=== PATIENT | female | born 1950 | race Caucasian/White ===

== ENCOUNTER → 2016-07-02 | Outpatient (CLI) | payer OTHER, MEDICARE | LOC: RAD 04:30 | DX: Z12.31 Encounter for screening mammogram for malignant neoplasm of breast (principal) ==

== ENCOUNTER 2018-03-10 18:35 | Inpatient (IN) | payer OTHER, MEDICARE ==
[~2018-03-10] VITALS: Ht 152.4 cm; Wt 91.6 kg
[2018-03-10 18:48] VITALS: BP 203/75
[2018-03-10] MEDS ORDERED: XANAX 0.5 MG0.5 MG PO (19:03)
[2018-03-10] MEDS ORDERED: OMEPRAZOLE40 MG PO (19:04)
[2018-03-10] MEDS ORDERED: NORVASC5 MG PO (19:04)
[2018-03-10] MEDS ORDERED: TOPROL XL100 MG PO (19:04)
[2018-03-10] MEDS ORDERED: HYDROCHLOROTHIA25 M2 PO (19:04)
[2018-03-10] MEDS ORDERED: GLUCOTROL5 MG PO (19:04)
[2018-03-10] MEDS ORDERED: MOBIC15 MG PO (19:04)
[2018-03-10] MEDS ORDERED: LISINOPRIL40 MG PO (19:04)
[2018-03-10] MEDS ORDERED: CENTRUM SILVER1 EAC4 PO (19:05)
[2018-03-10] MEDS ORDERED: BIOTIN5000 MCG PO (19:05)
[2018-03-10] MEDS ORDERED: COQ-10100 MG PO (19:05)
[2018-03-10] MEDS ORDERED: ZOCOR40 MG PO (19:05)
[2018-03-10] MEDS ORDERED: CALCIUM 600 +1 EAC1 PO (19:05)
[2018-03-10] MEDS ORDERED: CITRUCEL500 MG PO (19:06)
[2018-03-10] MEDS ORDERED: VITAMINC500 PO (19:06)
[2018-03-10] MEDS ORDERED: SUPER B COMPLE1 EAC2 PO (19:06)
[2018-03-10 19:25] LABS: ABSOLUTE NEUTROPHILS 9.2 thou/uL (1.4-8.2); BASOPHILS 0.9 % (0.0-2.0); EOSINOPHILS 2.7 % (0.0-3.0); HEMATOCRIT 38.1 % (37.0-47.0); HEMOGLOBIN 13.1 gm/dL (12.0-15.0); LYMPHOCYTES 15.9 % (24.0-44.0); MCHC 34.4 g/dL (28.0-37.0); MCV 84.1 fL (80.0-100.0); PLATELET COUNT 234 thou/uL (150-400); POLYS 73.5 % (36.0-66.0); RBC 4.53 mil/uL (4.20-5.00); RDW 13.2 % (10.5-14.5); WBC 12.6 thou/uL (4.0-11.0)
[2018-03-10 19:35] LABS: CALCIUM 9.4 mg/dL (8.5-10.1); CREATININE 1.4 mg/dL (0.6-1.0); POTASSIUM 3.9 mmol/L (3.5-5.1)
[2018-03-10 19:39] LABS: PROTIME 10.1 Seconds (9.3-11.4)
[2018-03-10 19:41] LABS: ALBUMIN 3.8 g/dL (3.4-5.0); DIRECT BILIRUBIN 0.1 mg/dL (<0.1-0.3); TOTAL BILIRUBIN 0.5 mg/dL (<0.1-1.0); TOTAL PROTEIN 7.2 g/dL (6.4-8.2)
[2018-03-10 20:50] VITALS: BP 137/46
[2018-03-10 21:18] VITALS: BP 137/46
[2018-03-10 21:25] VITALS: BP 149/53
[2018-03-11 03:41] LABS: HEMATOCRIT 33.6 % (37.0-47.0); HEMOGLOBIN 11.5 gm/dL (12.0-15.0); MCH 29.4 pg (26.0-34.0); MCHC 34.3 g/dL (28.0-37.0); MCV 85.7 fL (80.0-100.0); RBC 3.93 mil/uL (4.20-5.00); WBC 9.1 thou/uL (4.0-11.0)
[2018-03-11 04:00] LABS: ALBUMIN 3.1 g/dL (3.4-5.0); CALCIUM 8.8 mg/dL (8.5-10.1); CREATININE 1.1 mg/dL (0.6-1.0); POTASSIUM 4.2 mmol/L (3.5-5.1); TOTAL BILIRUBIN 0.4 mg/dL (<0.1-1.0); TOTAL PROTEIN 6.1 g/dL (6.4-8.2)
[2018-03-11 04:22] VITALS: BP 118/44
[2018-03-11 07:32] VITALS: BP 118/57
--- NOTE | 2018-03-11 07:52 | NUR ---
PROGRESS PT ADMITTED WITH DIVERTICULITIS, IVF'S INFUSING ORDERED, VOIDING QS, HAD A SMALL BMBUT MIXED WITH URINE UNABLE TO OBTAIN SPECIMEN. DENIES PAIN IV ANTIBIOTICS GIVEN ORDERED TOLERATING CLEARS AT THIS TIME.
--- NOTE | 2018-03-11 15:11 | NUR ---
ASSUMED PT CARE AT 0645. PT WAS RESTING AT THIS TIME, BUT A/OX4. WILL CONTINUE TO MONITOR PT.
[2018-03-11 15:14] VITALS: BP 123/62
[2018-03-11 19:27] VITALS: BP 129/49
[2018-03-12 04:18] VITALS: BP 131/55
--- NOTE | 2018-03-12 05:00 | NUR ---
Pt. rested quietly at intervals during the night when checked on during frequent rounds. She c/o a headache and was given po tylenol (see emar) with some relief of pain noted. Pt. c/o abdominal pain and rates a 2 out of 10 and denied any pain intervention.
[2018-03-12 08:04] VITALS: BP 128/47
[2018-03-12 09:20] LABS: HEMATOCRIT 33.8 % (37.0-47.0); HEMOGLOBIN 11.2 gm/dL (12.0-15.0); MCH 28.5 pg (26.0-34.0); MCHC 33.1 g/dL (28.0-37.0); MCV 86.2 fL (80.0-100.0); RBC 3.92 mil/uL (4.20-5.00); WBC 5.4 thou/uL (4.0-11.0)
[2018-03-12 09:28] LABS: CALCIUM 8.6 mg/dL (8.5-10.1); CREATININE 1.1 mg/dL (0.6-1.0); MAGNESIUM 1.7 mg/dL (1.8-2.4); POTASSIUM 4.4 mmol/L (3.5-5.1)
--- NOTE | 2018-03-12 15:56 | NUR ---
PT ADMITTED RELATED TO DIVERTICULITIS. CM REVIEWED CHART AND SPOKE WITH CARE TEAM. CM MET WITH PT AT BEDSIDE THIS DAY. PT IS A&O X4. CM ROLE INTRODUCED. PT INDICATED SHE LIVES IN A HOUSE WITH HER SPOUSE WITH 4 STEPS TO ENTER AND 14 STEPS TO SECOND STORY INDICATED. 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 PT INDICATED NO DME OR HH HX. PT INDICATED SHE PLANS TO RETURN HOME ONCE MEDICALLY STABLE. CM TO FOLLOW INDICATED WITH DC PLANNING.
[2018-03-12 17:40] VITALS: BP 129/59
--- NOTE | 2018-03-12 18:13 | NUR ---
ASSUMED CARE OF PT AT 0700. ASSESSMENT COMPLETED. A&0,X4. C/O HEADACHE, MEDS GIVEN ORDERED. DENIES ABD PAIN AND NAUSEA AT TIME OF ASSESSMENT. NEW ORDER FOR MIRALAX GIVEN, PT REPORTED 6-8 LOOSE BOWEL MOVEMENTS AFTER DOSE GIVEN. STOOL SPECIMEN COLLECTED AND SENT TO LAB DURING SHIFT. PT IS DIABETIC AND ACHS, REFUSED BREAKFAST AND LUNCH INSULIN PER SLIDING SCALE. AT BEDSIDE. MAINTAINING C.DIFF PRECAUTIONS. VSS.
[2018-03-12 21:03] VITALS: BP 159/60
--- NOTE | 2018-03-13 04:16 | NUR ---
PT RESTED THROUGHOUT THE NIGHT WITH NO ISSUES OR COMPLAINTS OF PAIN PT USED CALL LIGHT EFFECTIVELY.
[2018-03-13 05:22] VITALS: BP 151/49
[2018-03-13 05:49] LABS: HEMATOCRIT 34.2 % (37.0-47.0); HEMOGLOBIN 11.4 gm/dL (12.0-15.0); MCH 28.1 pg (26.0-34.0); MCHC 33.2 g/dL (28.0-37.0); MCV 84.8 fL (80.0-100.0); RBC 4.03 mil/uL (4.20-5.00); RDW 13.2 % (10.5-14.5); WBC 5.6 thou/uL (4.0-11.0)
[2018-03-13 06:08] LABS: CALCIUM 8.9 mg/dL (8.5-10.1); MAGNESIUM 1.7 mg/dL (1.8-2.4)
[2018-03-13 07:41] VITALS: BP 164/74
[2018-03-13] MEDS ORDERED: CIPRO500 MG PO (12:34)
[2018-03-13] MEDS ORDERED: FLAGYL500 M1 PO (12:35)
[2018-03-13 12:52] VITALS: BP 164/74
== END 2018-03-13 13:38 | disposition home or self-care (01) | DRG 377 ==
LOC: ER 18:35 → 4W 20:22 → EROBS 20:22 → 4W 21:15 → ENTRNSPT 03-13 13:37 → 4W 03-13 13:38
PROVIDERS: Internal Medicine; Nurse Practitioner; ADMIT Hospitalist
DX: K57.33 Diverticulitis of large intestine without perforation or abscess with bleeding (principal); N17.0 Acute kidney failure with tubular necrosis; K52.9 Noninfective gastroenteritis and colitis, unspecified; E11.9 Type 2 diabetes mellitus without complications; F41.1 Generalized anxiety disorder; I10 Essential (primary) hypertension; E78.5 Hyperlipidemia, unspecified; M54.5 Low back pain; G89.29 Other chronic pain; E78.00 Pure hypercholesterolemia, unspecified; K57.90 Diverticulosis of intestine, part unspecified, without perforation or abscess without bleeding; Z88.1 Allergy status to other antibiotic agents; Z79.899 Other long term (current) drug therapy
CPT/HCPCS: 10040

== ENCOUNTER → 2018-04-24 | Outpatient (CLI) | payer OTHER, MEDICARE ==
[~2018-04-24] VITALS: Ht 160 cm; Wt 88.5 kg
[~2018-04-24] MED LIST: BIOTIN5000 MCG PO; CALCIUM 600 +1 EAC1 PO; CENTRUM SILVER1 EAC4 PO; CIPRO500 MG PO; CITRUCEL500 MG PO; COQ-10100 MG PO; FLAGYL500 M1 PO; GLUCOTROL5 MG PO; HAIR, SKIN AND1 EACH PO; HYDROCHLOROTHIA25 M2 PO; LEVALBUTER0.63 MG/3 INH; LISINOPRIL40 MG PO; MOBIC15 MG PO; NORVASC5 MG PO; OMEPRAZOLE40 MG PO; SUPER B COMPLE1 EAC2 PO; TOPROL XL100 MG PO; VITAMINC500 PO; XANAX 0.5 MG0.5 MG PO; ZOCOR40 MG PO
--- NOTE | ~2018-04-24 | P ---
[facility] [place] [address] PROCEDURE REPORT Name: BETSY MARKHAM Room #: REG [facility]#: [id number] Admission: 04/24/18 ������������������ Attend Phys: Robert Conroy MD Discharge: ������������������ Date of : 48 Report #: [id number] THIS REPORT FOR: //name// CC: Robert Figueroa MD DATE OF SERVICE: 04/24/2018 BRIEF HISTORY: The patient is a 68-year-old woman who was admitted to [facility] in February of this year with acute onset of rectal bleeding, diarrhea and abdominal pain. CT revealed diverticular disease and also abnormalities consistent with either colitis or diverticulitis. She completed antibiotics and has had resolution of her symptoms and presents for further evaluation. PREOPERATIVE DIAGNOSES: Rectal bleeding, change in bowel habits and abdominal pain. POSTOPERATIVE DIAGNOSES: Moderately severe sigmoid diverticulosis coli with few scattered proximal colonic diverticula. MEDICATIONS: Deep sedation with propofol per Anesthesia. SPECIMEN: None. ESTIMATED BLOOD LOSS: None. PROCEDURE: Colonoscopy to cecum and terminal ileum. FINDINGS: Prior to propofol sedation, procedure of colonoscopy discussed with the patient as well as potential risks and its complications. She indicates she understands and desires to proceed. DESCRIPTION OF PROCEDURE: With the patient in lateral decubitus position, digital examination was completed, which revealed no abnormalities. Subsequently, the Olympus video colonoscope was introduced into the rectum, advanced under direct vision to the cecum. Done with some difficulty as she had very difficult sigmoid colon to traverse. The sigmoid colon was fixed and rigid and was with sharp angles. We made several attempts to pass the standard colonoscope without success. The scope was exchanged for a pediatric colonoscope. Then we were able to pass the scope with modest difficulty through the sigmoid colon. Once we were above the sigmoid colon, the scope passed easily into the proximal colon and the cecum was reached, identified by the ileocecal valve and the appendiceal orifice. We were able to visualize the distal segment of the terminal ileum, which was inspected and noted to be [facility] [address] [place] [address] PROCEDURE REPORT Name: BETSY MARKHAM Room #: REG [facility].#: [id number] Admission: 04/24/18 ������������������ Attend Phys: Robert Conroy MD Discharge: ������������������ Date of : 48 Report #: [id number] unremarkable as well. At that point, the scope was slowly withdrawn and careful circumferential views were obtained. The prep was good. The mucosa was within normal limits, normal vascular pattern, normal light reflex. As we withdrew the scope, no neoplastic or inflammatory changes were seen. There were a few small diverticula in the proximal colon. However, she was noted to have fairly severe left-sided diverticular disease, essentially involving the sigmoid colon. This area was tortuous and fairly rigid, but there are no definite obstructions. No bleeding lesions were seen. There is no evidence of colitis. There was no endoscopic evidence of diverticulitis. The scope was withdrawn into the rectum. No abnormalities were seen. Upon retroflexion, no abnormalities were seen. Scope was withdrawn. The patient tolerated the procedure well. CONDITION OF THE PATIENT UPON DISCHARGE: Following the procedure, the patient was drowsy, arousable and conversant. She will be discharged home when fully ambulatory. INSTRUCTIONS TO THE PATIENT AND FAMILY AT THE TIME OF DISCHARGE: She clearly has a fairly extensive diverticular disease. She reports her pain is controlled as long as she takes fiber and stool softeners. She has not had any further rectal bleeding. I suspect she had an acute self-limited process, I cannot say with certainty, but I suspect there was an acute colitis. Another consideration would be an acute ischemic event. Diverticulitis is also possibilities. At this point in time, I suggest she continue fiber product and stool softener. If needed, she may use MiraLax for management of constipation as well. If she has recurrent bouts of pain, especially recurrent bouts of documented diverticulitis, surgical resection of sigmoid colon may be an option for her. She will return to care of Dr. Luisito Figueroa and return to see me as needed. Continue high fiber diet and stool softeners. Suggest colonoscopy in 10 years for average risk patient. Her last colonoscopy was in 2011. Withdrawal time from the cecum was 9 minutes 56 seconds. ��������������������������������������������� ���������������������������������������� By: ��������������������������������������������� [id number] Robert Conroy MD /dafne
== END | disposition home or self-care (01) ==
LOC: GI 08:09
DX: K62.5 Hemorrhage of anus and rectum (principal); R19.7 Diarrhea, unspecified; R10.9 Unspecified abdominal pain; K57.30 Diverticulosis of large intestine without perforation or abscess without bleeding; K56.2 Volvulus; Z68.34 Body mass index [BMI] 34.0-34.9, adult; F41.9 Anxiety disorder, unspecified; G47.30 Sleep apnea, unspecified; J40 Bronchitis, not specified as acute or chronic; Z87.891 Personal history of nicotine dependence; I10 Essential (primary) hypertension; E78.5 Hyperlipidemia, unspecified; K21.9 Gastro-esophageal reflux disease without esophagitis; E11.9 Type 2 diabetes mellitus without complications; Z98.890 Other specified postprocedural states
CPT/HCPCS: 62110; 62900

== ENCOUNTER → 2018-08-12 | Outpatient (CLI) | payer OTHER, MEDICARE | LOC: RAD 01:19 | DX: Z12.31 Encounter for screening mammogram for malignant neoplasm of breast (principal) ==

== ENCOUNTER → 2019-08-17 | Outpatient (CLI) | payer OTHER, MEDICARE | LOC: RAD 08:47 | PROVIDERS: ATTEND Neuromusculoskeletal Medicine & OMM | DX: Z12.31 Encounter for screening mammogram for malignant neoplasm of breast (principal) ==

== ENCOUNTER → 2019-11-25 | Outpatient (CLI) | payer OTHER, MEDICARE | LOC: NUC 13:15 | PROVIDERS: ATTEND Neuromusculoskeletal Medicine & OMM | DX: M81.0 Age-related osteoporosis without current pathological fracture (principal) ==

== ENCOUNTER → 2020-08-18 | Outpatient (CLI) | payer OTHER, MEDICARE | LOC: BC 10:15 | PROVIDERS: ATTEND Neuromusculoskeletal Medicine & OMM | DX: Z12.31 Encounter for screening mammogram for malignant neoplasm of breast (principal) ==